=== PATIENT | female | born 1960 | race Caucasian/White ===

== ENCOUNTER → 2017-02-11 | Outpatient (CLI) | payer OTHER ==
--- NOTE | 2017-02-11 10:46 | REPMRS ---
Patient History The patient states she had a clinical breast exam in 01/2017. Patient is postmenopausal. Family history of colorectal cancer in sister at age 50 or over, pancreatic cancer in mother at age 50 or over, ovarian cancer in maternal aunt at age 50 or over, ovarian cancer in maternal grandmother at age 50 or over, and premenopausal breast cancer in paternal grandmother at age 50 or over. Took unspecified hormones for 11 years. Digital Woman Screen Mammo: February 11, 2017 - Exam #: [id number] Bilateral CC and MLO view(s) were taken. Technologist: Colette Watson Technologist Prior study comparison: January 30, 2016, digital woman screen mammo performed at [facility]. January 17, 2015, digital woman screen mammo performed at [facility]. January 05, 2014, digital woman screen mammo performed at [facility]. FINDINGS: There are scattered fibroglandular densities. There has been no change in the appearance of the mammogram from the prior studies. There is a mild amount of scattered fibroglandular density which is fairly symmetric. There is no interval development of dominant mass, architectural distortion, or clustered microcalcification suggestive of malignancy. ASSESSMENT: BI-RADS/ACR category 1 mammogram. Negative. Recommendation Routine screening mammogram in 1 year (for women over age 40). This mammogram was interpreted with the aid of an FDA-approved computer-aided dectection system. Electronically Signed By: Gunner Forde MD 02/11/17 2181
== END ==
LOC: M WHC 09:38
PROVIDERS: ATTEND Nurse Practitioner Women's Health
DX: Z12.31 Encounter for screening mammogram for malignant neoplasm of breast (principal); Z80.3 Family history of malignant neoplasm of breast

== ENCOUNTER → 2017-02-11 | Outpatient (REF) | payer OTHER | LOC: M SFHCWAGY 10:44 | PROVIDERS: ATTEND Nurse Practitioner Women's Health | DX: Z12.4 Encounter for screening for malignant neoplasm of cervix (principal) ==

== ENCOUNTER 2017-12-25 08:47 | Day surgery (SDC) | payer OTHER ==
[2017-12-25] MEDS: NS 1,000 ML IV (09:08)
[2017-12-25] MEDS ORDERED: PROPOFOL 200 MG/20 ML VIAL As Ordered (09:31)
[2017-12-25] MEDS ORDERED: LIDOCAINE 2% INJ 100 MG/5 ML SDV (FOR ANES.) As Ordered (09:31)
== END 2017-12-25 10:50 | disposition home or self-care (01) ==
LOC: M OPP 08:47
DX: Z12.11 Encounter for screening for malignant neoplasm of colon (principal); K64.0 First degree hemorrhoids; D12.2 Benign neoplasm of ascending colon; K57.30 Diverticulosis of large intestine without perforation or abscess without bleeding; Z86.010 Personal history of colon polyps; Z80.0 Family history of malignant neoplasm of digestive organs; K22.8 Other specified diseases of esophagus; R12 Heartburn; I12.9 Hypertensive chronic kidney disease with stage 1 through stage 4 chronic kidney disease, or unspecified chronic kidney disease; M17.9 Osteoarthritis of knee, unspecified; R06.83 Snoring; E11.9 Type 2 diabetes mellitus without complications; K21.9 Gastro-esophageal reflux disease without esophagitis; N18.3 Chronic kidney disease, stage 3 (moderate); Z79.84 Long term (current) use of oral hypoglycemic drugs; Z79.899 Other long term (current) drug therapy; Z88.8 Allergy status to other drugs, medicaments and biological substances; K82.9 Disease of gallbladder, unspecified; Z78.0 Asymptomatic menopausal state; Z83.3 Family history of diabetes mellitus
CPT/HCPCS: 45380

== ENCOUNTER → 2018-02-12 | Outpatient (CLI) | payer OTHER | LOC: M WHC 10:17 | DX: Z12.31 Encounter for screening mammogram for malignant neoplasm of breast (principal) | CPT/HCPCS: 77067 ==

== ENCOUNTER → 2018-02-12 | Outpatient (REF) | payer OTHER | LOC: M SFHCWAGY 10:24 | DX: Z12.4 Encounter for screening for malignant neoplasm of cervix (principal) | CPT/HCPCS: G0123 ==